=== PATIENT | female | born 1955 | race African-American/Black ===

== ENCOUNTER 2023-01-27 10:18 | Emergency (ER) | payer MEDICARE, MEDICAID, SELFPAY ==
[2023-01-27] VITALS (16 sets, daily range): BP systolic 145–178; BP diastolic 45–76; PULSE 0–69; RESP 12–19; TEMP 36.5; O2SAT 95–100
--- NOTE | ~2023-01-27 | XR_ITS ---
EXAMINATION: XR chest 2V DATE: 01/27/2023 11:00 INDICATION: Shortness of breath. Chest pain. TECHNIQUE: Frontal and lateral views of the chest were obtained. COMPARISON: None. FINDINGS: There is mild atelectasis in lingula. No pleural effusion or pneumothorax. The heart size i s normal. IMPRESSION: 1. Mild atelectasis in lingula. Reviewed, dictated and finalized at location A.
--- NOTE | 2023-01-27 10:25 | ECG_ITS ---
Measurements Intervals [place] Rate: 62 P: 63 KS: 209 QRS: -22 QRSD: 94 T: 90 QT: 415 QTc: 423 Interpretive Statements SINUS RHYTHM CANNOT RULE OUT SEPTAL INFARCT, AGE INDETERMINATE BORDERLINE ST-T WAVE ABNORMALITY- HIGH LATERAL LEADS ABNORMAL ECG NO PREVIOUS ECG AVAILABLE FOR COMPARISON Electronically Signed On 01-27-2023 11:05:21 CDT by Nicho Gracia D.O.
[2023-01-27 10:55] LABS: Basophils Absolute Auto 0.1 K/mm3 (0.0-0.1); Basophils Percent Auto 0.6 % (0.2-1.2); Eosinophils Absolute Auto 0.2 K/mm3 (0-0.3); Hematocrit 37.3 % (37.0-47.0); Immature Granulocyte Absolute 0.03 K/mm3 (0.00-0.031); Immature Granulocyte Percent A 0.3 % (0-0.5); Lymphocytes Absolute Auto 2.35 K/mm3 (0.9-3.2); Lymphocytes Percent Auto 26.1 % (18.3-44.2); Mean Corpuscular HGB Conc 32.2 g/dl (32-36); Mean Corpuscular Hemoglobin 28.8 pg (26-34); Mean Corpuscular Volume 89.4 fl (80-100); Mean Platelet Volume 9.9 fl (7.4-10.4); Monocytes Absolute Auto 0.5 K/mm3 (0.1-0.6); Neutrophils Absolute Auto 5.9 K/mm3 (1.3-6.7); Platelet Count Result 269 k/mm3 (150-375); Red Blood Count 4.17 M/mm3 (4.2-5.4); Red Cell Distribution Width 13.4 % (11.5-14.5)
[2023-01-27 11:03] LABS: Alanine Aminotransferase 18 U/L (6-35); Albumin Level 4.4 g/dL (3.5-5.1); Alkaline Phosphatase 139 U/L (38-126); Anion Gap 6 mmol/L (8-16); Aspartate Amino Transferase 24 U/L (14-36); Blood Urea Nitrogen 17 mg/dL (7-17); Calcium 9.9 mg/dL (8.4-10.2); Carbon Dioxide 29 mmol/L (22-30); Chloride 100 mmol/L (98-107); Estimated CRCL calculation 69 ml/min; Estimated Glomerular Filt Rate > 60; Glucose 309 mg/dL (65-110); Lipase 51 U/L (23-300); Potassium 4.3 mmol/L (3.4-5.0); Sodium 135 mmol/L (137-145)
[2023-01-27 11:05] LABS: INR 0.9; Prothrombin Time 12.7 Seconds (11.1-14.7)
[2023-01-27 11:06] LABS: Partial Thromboplastin Time 25.3 SECONDS (22.3-36.8)
[2023-01-27 11:14] LABS: Troponin I < 0.012 ng/mL (0.000-0.034)
--- NOTE | 2023-01-27 12:12 | ED.SOB ---
HPI - SOB/Dyspnea General Chief Complaint: Shortness of Breath/Dyspnea Stated Complaint: Chest Pain Time Seen by Provider: 01/27/23 12:01 History of Present Illness HPI Narrative: Patient is a 67-year-old female with a history of diabetes, hypertension, hyperlipidemia presenting with an episode of chest pain. Patient states that she was walking when she developed pain under her left breast as well as shortness of breath. States that it has now subsided. Patient states that certain movements of her left arm and laying certain ways makes the pain worse. Denies pleuritic component. States that she has had this in the past and has had cardiac work-ups that have been negative. States that she was at another hospital 2 weeks ago for this. States that she saw her PCP on Thursday for follow-up and was unwilling to start any of the medications he recommended. Reports noncompliance due to not liking taking medications. No fevers or chills, headache, numbness or weakness, lightheadedness, abdominal pain, nausea or vomiting, back pain, leg swelling. Related Data Allergies Allergy/AdvReac Type Severity Reaction Status Date / Time iodine Allergy Rash Verified 01/27/23 11:08 latex Allergy Rash Verified 01/27/23 11:08 penicillin G Allergy Swelling Verified 01/27/23 11:08 Review of Systems Review of Systems: All systems reviewed & are unremarkable except as noted in HPI and below Exam Narrative: GENERAL: Well-appearing, well-nourished, and in no acute distress. HEAD: Normocephalic, atraumatic. EYES: PERRLA and EOMI. ENT: Nares clear, no rhinorrhea or epistaxis. Mucous membranes moist. NECK: Supple. CHEST: Clear to auscultation. No respiratory distress. left chest wall tenderness just superior to left breast, no rashes HEART: Regular rate and rhythm. No murmur heard. Normal peripheral pulses. ABDOMEN: Soft, nontender, nondistended EXTREMITIES: Normal range of motion. No edema. SKIN: Warm, dry, no rash. NEURO: No focal deficits. Alert and oriented x3. PSYCH: Normal mood and affect. Course Vital Signs Vital signs: Vital Signs Temperature 97.7 F 01/27/23 10:20 Pulse Rate 68 01/27/23 10:20 Respiratory Rate 18 01/27/23 10:20 Blood Pressure 178/69 H 01/27/23 10:20 Pulse Oximetry 99 01/27/23 10:20 Oxygen Delivery Room Air 01/27/23 10:20 Temperature 97.7 F 01/27/23 10:20 Pulse Rate 69 01/27/23 18:02 Respiratory Rate 17 01/27/23 18:02 Blood Pressure 165/68 H 01/27/23 18:02 Pulse Oximetry 100 01/27/23 18:02 Oxygen Delivery Room Air 01/27/23 11:05 MDM - SOB/Dyspnea MDM Narrative Medical decision making narrative: Patient is a 67-year-old female presenting with an episode of chest pain. Vitals are within normal limits. Exam remarkable for the above. She does have significant left-sided chest wall tenderness just superior to her left breast. States it is the same pain she had earlier. Patient declines any pain medication at this time. EKG per my interpretation shows normal sinus rhythm, left axis deviation, slightly prolonged MT, no ST elevations or depressions. Chest x-ray without acute abnormalities. Blood work is unremarkable. D-dimer within normal limits. Troponins are undetectable x3. HEART score of 5 due to age and chronic risk factors. On reevaluation, the patient reports resolution in her pain. Discussed the reassuring work-up. Given the significant tenderness on exam and the worsening of her pain with certain movements, I am most suspicious for a musculoskeletal cause of pain such as costochondritis or muscle spasms. I do not suspect ACS at this time given the history and negative troponins x3. Advised appropriate supportive care and PCP follow-up. Appropriate return precautions given. Patient voiced understanding and is agreeable with plan. Discharged in stable condition. Differential Diagnosis Differential diagnosis: Likely congestive heart failure, community acquired p
[2023-01-27 12:39] LABS: D Dimer 0.47 ug/mL (<0.48)
[2023-01-27 13:45] LABS: Troponin I < 0.012 ng/mL (0.000-0.034)
[2023-01-27 16:30] LABS: Troponin I < 0.012 ng/mL (0.000-0.034)
== END 2023-01-27 18:26 | disposition home or self-care (01) ==
PROVIDERS: Emergency Medicine; Emergency Provider Emergency Medicine; PCP Family Medicine
DX: R07.89 Other chest pain (principal); E11.9 Type 2 diabetes mellitus without complications; I10 Essential (primary) hypertension; E78.5 Hyperlipidemia, unspecified; R94.31 Abnormal electrocardiogram [ECG] [EKG]
CPT/HCPCS: 36415; 71046; 80053; 83690; 84484; 85025; 85380; 85610; 85730; 93005; 99284